=== PATIENT | female | born 1955 | race Caucasian/White ===

== ENCOUNTER → 2019-08-31 09:49 | Outpatient (BNVA) | payer MEDICARE, MEDICAID, SELFPAY | PROVIDERS: Family Provider Family Medicine; PCP Family Medicine; Visit Provider Nurse Practitioner Psychiatric/Mental Health | DX: F33.1 Major depressive disorder, recurrent, moderate (principal); F43.12 Post-traumatic stress disorder, chronic; F41.1 Generalized anxiety disorder | CPT/HCPCS: 99214; 99215 ==

== ENCOUNTER → 2019-11-22 08:52 | Outpatient (BNVA) | payer MEDICARE, MEDICAID, SELFPAY | PROVIDERS: Family Provider Family Medicine; PCP Family Medicine; Visit Provider Nurse Practitioner Psychiatric/Mental Health | DX: F33.1 Major depressive disorder, recurrent, moderate (principal); F43.12 Post-traumatic stress disorder, chronic; F41.1 Generalized anxiety disorder | CPT/HCPCS: 99214 ==

== ENCOUNTER → 2020-01-17 08:18 | Outpatient (BNVA) | payer MEDICARE, MEDICAID, SELFPAY | PROVIDERS: Family Provider Family Medicine; PCP Family Medicine; Visit Provider Nurse Practitioner Psychiatric/Mental Health | DX: F33.1 Major depressive disorder, recurrent, moderate (principal); F43.12 Post-traumatic stress disorder, chronic; F41.1 Generalized anxiety disorder | CPT/HCPCS: 99214 ==

== ENCOUNTER → 2020-03-28 07:51 | Outpatient (BNVA) | payer MEDICARE, MEDICAID, SELFPAY | PROVIDERS: Family Provider Family Medicine; PCP Family Medicine; Visit Provider Nurse Practitioner Psychiatric/Mental Health | DX: F33.1 Major depressive disorder, recurrent, moderate (principal); F43.12 Post-traumatic stress disorder, chronic; F41.1 Generalized anxiety disorder; Z79.899 Other long term (current) drug therapy | CPT/HCPCS: 99214 ==

== ENCOUNTER → 2020-04-12 09:20 | Outpatient (BNVA) | payer MEDICARE, MEDICAID, SELFPAY | PROVIDERS: Family Provider Family Medicine; PCP Family Medicine; Visit Provider Nurse Practitioner Psychiatric/Mental Health | DX: F33.1 Major depressive disorder, recurrent, moderate (principal); F43.12 Post-traumatic stress disorder, chronic; F41.1 Generalized anxiety disorder | CPT/HCPCS: 99214 ==

== ENCOUNTER → 2020-05-10 07:46 | Outpatient (BNVA) | payer MEDICARE, MEDICAID, SELFPAY | PROVIDERS: Family Provider Family Medicine; PCP Family Medicine; Visit Provider Nurse Practitioner Psychiatric/Mental Health | DX: F33.1 Major depressive disorder, recurrent, moderate (principal); F43.12 Post-traumatic stress disorder, chronic; F41.1 Generalized anxiety disorder | CPT/HCPCS: 99214 ==

== ENCOUNTER → 2020-06-07 07:46 | Outpatient (BNVA) | payer MEDICARE, MEDICAID, SELFPAY | PROVIDERS: Family Provider Family Medicine; PCP Family Medicine; Visit Provider Nurse Practitioner Psychiatric/Mental Health | DX: F33.1 Major depressive disorder, recurrent, moderate (principal); F43.12 Post-traumatic stress disorder, chronic; F41.1 Generalized anxiety disorder | CPT/HCPCS: 99214 ==

== ENCOUNTER → 2020-07-06 08:28 | Outpatient (BNVA) | payer MEDICARE, MEDICAID, SELFPAY | PROVIDERS: Family Provider Family Medicine; PCP Family Medicine; Visit Provider Nurse Practitioner Psychiatric/Mental Health | DX: F33.1 Major depressive disorder, recurrent, moderate (principal); F43.12 Post-traumatic stress disorder, chronic; F41.1 Generalized anxiety disorder | CPT/HCPCS: 99213 ==

== ENCOUNTER → 2020-08-31 10:46 | Outpatient (BNVA) | payer MEDICARE, MEDICAID, SELFPAY | PROVIDERS: Family Provider Family Medicine; PCP Family Medicine; Visit Provider Nurse Practitioner Psychiatric/Mental Health | DX: F33.1 Major depressive disorder, recurrent, moderate (principal); F43.12 Post-traumatic stress disorder, chronic; F41.1 Generalized anxiety disorder | CPT/HCPCS: 99213 ==

== ENCOUNTER → 2020-10-12 08:19 | Outpatient (BNVA) | payer MEDICARE, MEDICAID, SELFPAY | PROVIDERS: Family Provider Family Medicine; PCP Family Medicine; Visit Provider Nurse Practitioner Psychiatric/Mental Health | DX: F33.1 Major depressive disorder, recurrent, moderate (principal); F43.12 Post-traumatic stress disorder, chronic; F41.1 Generalized anxiety disorder | CPT/HCPCS: 99214 ==

== ENCOUNTER → 2020-11-30 08:47 | Outpatient (BNVA) | payer MEDICARE, MEDICAID, SELFPAY | PROVIDERS: Family Provider Family Medicine; PCP Family Medicine; Visit Provider Nurse Practitioner Psychiatric/Mental Health | DX: F33.1 Major depressive disorder, recurrent, moderate (principal); F43.12 Post-traumatic stress disorder, chronic; F41.1 Generalized anxiety disorder | CPT/HCPCS: 99214 ==

== ENCOUNTER → 2021-01-11 07:38 | Outpatient (BNVA) | payer MEDICARE, MEDICAID, SELFPAY | PROVIDERS: Family Provider Family Medicine; PCP Family Medicine; Visit Provider Nurse Practitioner Psychiatric/Mental Health | DX: F33.1 Major depressive disorder, recurrent, moderate (principal); F43.12 Post-traumatic stress disorder, chronic; F41.1 Generalized anxiety disorder | CPT/HCPCS: 99214 ==

== ENCOUNTER → 2021-01-30 07:31 | Outpatient (BNVA) | payer MEDICARE, MEDICAID, SELFPAY | PROVIDERS: Family Provider Family Medicine; PCP Family Medicine; Visit Provider Nurse Practitioner Psychiatric/Mental Health | DX: F33.1 Major depressive disorder, recurrent, moderate (principal); F43.12 Post-traumatic stress disorder, chronic; F41.1 Generalized anxiety disorder | CPT/HCPCS: 99214 ==

== ENCOUNTER → 2021-03-01 07:36 | Outpatient (BNVA) | payer MEDICARE, MEDICAID, SELFPAY | PROVIDERS: Family Provider Family Medicine; PCP Family Medicine; Visit Provider Nurse Practitioner Psychiatric/Mental Health | DX: F33.1 Major depressive disorder, recurrent, moderate (principal); F43.12 Post-traumatic stress disorder, chronic; F41.1 Generalized anxiety disorder | CPT/HCPCS: 99214 ==

== ENCOUNTER → 2021-04-12 08:35 | Outpatient (BNVA) | payer MEDICARE, MEDICAID, SELFPAY | PROVIDERS: Family Provider Family Medicine; PCP Family Medicine; Visit Provider Nurse Practitioner Psychiatric/Mental Health | DX: F33.1 Major depressive disorder, recurrent, moderate (principal); F43.12 Post-traumatic stress disorder, chronic; F41.1 Generalized anxiety disorder | CPT/HCPCS: 99214 ==

== ENCOUNTER → 2021-05-24 08:27 | Outpatient (BNVA) | payer MEDICARE, MEDICAID, SELFPAY | PROVIDERS: Family Provider Family Medicine; PCP Family Medicine; Visit Provider Nurse Practitioner Psychiatric/Mental Health | DX: F33.1 Major depressive disorder, recurrent, moderate (principal); F43.12 Post-traumatic stress disorder, chronic; F41.1 Generalized anxiety disorder | CPT/HCPCS: 99214 ==

== ENCOUNTER → 2021-06-21 08:29 | Outpatient (BNVA) | payer MEDICARE, MEDICAID, SELFPAY | PROVIDERS: Family Provider Family Medicine; PCP Family Medicine; Visit Provider Nurse Practitioner Psychiatric/Mental Health | DX: F33.1 Major depressive disorder, recurrent, moderate (principal); F43.12 Post-traumatic stress disorder, chronic; F41.1 Generalized anxiety disorder | CPT/HCPCS: 99214 ==

== ENCOUNTER → 2021-09-11 07:51 | Outpatient (BNVA) | payer MEDICARE, MEDICAID, SELFPAY | PROVIDERS: Family Provider Family Medicine; PCP Family Medicine; Visit Provider Nurse Practitioner Psychiatric/Mental Health | DX: F33.1 Major depressive disorder, recurrent, moderate (principal); F43.12 Post-traumatic stress disorder, chronic; F41.1 Generalized anxiety disorder | CPT/HCPCS: 99214 ==

== ENCOUNTER → 2021-10-23 07:41 | Outpatient (BNVA) | payer MEDICARE, MEDICAID, SELFPAY | PROVIDERS: Family Provider Family Medicine; PCP Family Medicine; Visit Provider Nurse Practitioner Psychiatric/Mental Health | DX: F33.1 Major depressive disorder, recurrent, moderate (principal); F43.12 Post-traumatic stress disorder, chronic; F41.1 Generalized anxiety disorder | CPT/HCPCS: 99214 ==

== ENCOUNTER → 2021-11-20 07:40 | Outpatient (BNVA) | payer MEDICARE, MEDICAID, SELFPAY | PROVIDERS: Family Provider Family Medicine; PCP Family Medicine; Visit Provider Nurse Practitioner Psychiatric/Mental Health | DX: F33.1 Major depressive disorder, recurrent, moderate (principal); F43.12 Post-traumatic stress disorder, chronic; F41.1 Generalized anxiety disorder | CPT/HCPCS: 99214 ==

== ENCOUNTER → 2022-01-01 07:07 | Outpatient (BNVA) | payer MEDICARE, MEDICAID, SELFPAY | PROVIDERS: Family Provider Family Medicine; PCP Family Medicine; Visit Provider Nurse Practitioner Psychiatric/Mental Health | DX: F33.1 Major depressive disorder, recurrent, moderate (principal); F43.12 Post-traumatic stress disorder, chronic; F41.1 Generalized anxiety disorder | CPT/HCPCS: 99214 ==

== ENCOUNTER → 2022-02-12 07:06 | Outpatient (BNVA) | payer MEDICARE, MEDICAID, SELFPAY | PROVIDERS: Family Provider Family Medicine; PCP Family Medicine; Visit Provider Nurse Practitioner Psychiatric/Mental Health | DX: F33.1 Major depressive disorder, recurrent, moderate (principal); F43.12 Post-traumatic stress disorder, chronic; F41.1 Generalized anxiety disorder | CPT/HCPCS: 99214 ==

== ENCOUNTER 2023-05-25 01:42 | Inpatient (IN) | payer MEDICARE, MEDICAID, SELFPAY ==
[2023-05-25] VITALS (8 sets, daily range): BP systolic 138–159; BP diastolic 65–83; PULSE 63–111; RESP 15–24; TEMP 36.6–36.9; O2SAT 93–99; BMI 64.2
[2023-05-25 02:55] LABS: Basophils % 0.5 %; Eosinophils # 0.3 10^3/uL (0.0-0.8); Eosinophils % 4.3 %; Hematocrit 35.5 % (36-47); Lymphocytes # 2.7 10^3/uL (0.8-4.8); Lymphocytes % 45.7 %; Mean Corpuscular HGB Conc 30.4 g/dL (30-55); Mean Corpuscular Hemoglobin 26.6 pg (27-33); Mean Corpuscular Volume 87.4 fl (85-98); Mean Platelet Volume 9.2 fL (7.4-10.4); Monocytes # 0.4 10^3/uL (0.2-0.9); Monocytes % 6.9 %; Neutrophils # 2.46 10^3/uL (1.8-7.7); Neutrophils % 42.4 %; Nucleated Red Blood Cells % 0 %; Platelet Count 222 10^3/cmm (157-399); Red Blood Count 4.06 10^6/uL (3.85-5.65); Red Cell Distribution Width 17.8 % (12.1-15.1)
[2023-05-25] MEDS: lanolin oint 7 gm 1 APPLIC TOPICAL (02:57)
--- NOTE | 2023-05-25 03:12 | W.ED.PSYCHS ---
HPI - Psych General: Chief Complaint: Psychiatric Symptoms Stated Complaint: SI Time Seen by Provider: 05/25/23 01:48 History of Present Illness: 67-year-old female complaining of suicidal ideation. This patient has been living at home with her family. She has an extensive psychiatric history. She has been admitted in the past for intentional overdose and suicidal ideation, although its been years since she has done so. She presents because she was having thoughts of harming herself, and was hearing voices telling her to do such. She did not know if she would be safe to stay at home. Symptoms of been going on and off for a week, but were worse this morning. She had promised her psychiatric nurse practitioner, that if she had such thoughts, she would call the hotline which she did. She presents by ambulance after calling the hotline. She notes that the voices are now gone. She is still unsure whether she would feel safe going home at this point. She had a recent increase in her Effexor. No recent fevers, vomiting, shortness of breath, etc. Associated symptoms: Reports auditory hallucinations, depression and suicidal ideation; Deny visual hallucinations Review of Systems Const: Denies: fever(s) or chills Eyes: Denies: change in vision ENMT: Reports: nasal congestion Card: Denies: chest pain or palpitations Resp: Denies: dyspnea, productive cough or non-productive cough GI: Denies: abdominal pain, nausea, vomiting or diarrhea Skin/Breast: Reports: rash (Intertriginous cellulitis, chronic) Psych: Reports: anxiety, depression, auditory hallucinations and suicidal ideation; Denies: visual hallucinations or tactile hallucinations [facility] ED PFSH: Medical History Chronic post-traumatic stress disorder Generalized anxiety disorder Major depressive disorder, recurrent episode, moderate with anxious distress Psychiatric care Physical Exam Const: GENERAL APPEARANCE: cooperative and frail appearing (Mildly); not ill appearing NUTRITIONAL APPEARANCE: obese HENMT: COMMON NORMALS: normocephalic, atraumatic and Normal external nose present HEAD & SCALP: normocephalic and atraumatic FACE & SINUS: normal facial exam and face symmetric NOSE: Normal external nose present Eye: COMMON NORMALS: Equal, round and reactive pupils present and EOMs intact bilaterally PUPIL: Yes Equal, round and reactive pupils present Neck/C-Spine: GENERAL: Yes trachea midline Chest: CHEST: Yes Symmetrical chest wall rise Resp: COMMON NORMALS: normal respiratory effort, No retractions, No use of accessory muscles and clear to auscultation bilaterally AUSCULTATION: clear to auscultation bilaterally Cardio: COMMON NORMALS: regular rate and regular rhythm RATE: regular rate RHYTHM: regular rhythm HEART SOUNDS: Murmur heart sound present systolic GI: COMMON NORMALS: Normal to inspection, nondistended, normoactive bowel sounds present Extremity: COMMON NORMALS: no pedal edema Neuro: ANN COMA SCALE: document GCS findings Ann coma scale eye opening: Spontaneous Ayden coma scale verbal response: Orientated Ayden coma scale motor response: Obey commands Ann coma scale total score: 15 SENSORY EXAM: Yes extremities (intact) Psych: COMMON NORMALS: speech normal SPEECH: Yes normal speech Skin: NARRATIVE SKIN EXAM: Intertriginous cellulitis. Course Vital Signs: Vital signs: Vital Signs Temperature 98.1 F 05/25/23 14:00 Pulse Rate 67 05/25/23 14:00 Respiratory Rate 15 05/25/23 14:00 Blood Pressure 143/79 05/25/23 14:00 Pulse Oximetry 98 05/25/23 14:00 Oxygen Delivery Me thod Nasal Cannula 05/25/23 09:44 Oxygen Flow Rate 3 05/25/23 06:29 [facility] - Psych Medical Decision Making 67-year-old patient without a history of dementia. She is having suicidal ideations, and has a long psychiatric history. Medically, she is stable. Laboratory shows hemoglobin of 11. Chest x-ray is negative for acute problems. No significant urinary tract infection although there is some hematuria. Talk screen is negative. Other laboratory not remarkable. The patient is on 3 L at baseline. She seems to get short of breath after activity more than during. This is improved after DuoNeb treatment in the ER. Spoke with psychiatry. Recommendations are to have someone from the NPU come see the patient to see if they believe she is appropriate for MPU admission. Also to have respiratory assess the patient. We have done both. Both staff members seem to believe she will do okay there. She is admitted to neuropsychiatry. Lab Data 05/25/23 02:37 05/25/23 02:37 Radiology Impressions Chest X-Ray 05/25/23 05:41 IMPRESSION: 1. Elevation of the right hemidiaphragm. 2. Mild cardiomegaly. No pulmonary vascular congestion Laboratory Results WBC 5.80 10^3/uL (3.29-11.43) 05/25/23 02:37 RBC 4.06 10^6/uL (3.85-5.65) 05/25/23 02:37 Hgb 10.80 g/dL (11.27-16.99) L 05/25/23 02:37 Hct 35.5 % (36-47) L 05/25/23 02:37 MCV 87.4 fl (85-98) 05/25/23 02:37 MCH 26.6 pg (27-33) L 05/25/23 02:37 MCHC 30.4 g/dL (30-55) 05/25/23 02:37 RDW 17.8 % (12.1-15.1) H 05/25/23 02:37 Plt Count 222 10^3/cmm (157-399) 05/25/23 02:37 MPV 9.2 fL (7.4-10.4) 05/25/23 02:37 Neut % (Auto) 42.4 % 05/25/23 02:37 Lymph % (Auto) 45.7 % 05/25/23 02:37 [place] % (Auto) 6.9 % 05/25/23 02:37 Eos % (Auto) 4.3 % 05/25/23 02:37 Baso % (Auto) 0.5 % 05/25/23 02:37 Neut # (Auto) 2.46 10^3/uL (1.8-7.7) 05/25/23 02:37 Lymph # (Auto) 2.7 10^3/uL (0.8-4.8) 05/25/23 02:37 [place] # (Auto) 0.4 10^3/uL (0.2-0.9) 05/25/23 02:37 Eos # (Auto) 0.3 10^3/uL (0.0-0.8) 05/25/23 02:37 Baso # (Auto) 0.0 10^3/uL (0.0-0.1) 05/25/23 02:37 Nucleated RBC % (auto) 0 % 05/25/23 02:37 Nucleated RBCs # 0.0 /100WBC 05/25/23 02:37 PT 15.60 SECONDS (12.1-14.9) H 05/25/23 02:37 INR 1.20 (0.8-1.2) 05/25/23 02:37 Sodium 137 mmol/L (136-145) 05/25/23 02:37 Potassium 4.2 mmol/L (3.5-5.1) 05/25/23 02:37 Chloride 98 mmol/L (98-107) 05/25/23 02:37 Carbon Dioxide 32 mmol/L (22-29) H 05/25/23 02:37 Anion Gap 11.2 (5-19) 05/25/23 02:37 BUN 15 mg/dL (8-23) 05/25/23 02:37 Creatinine 0.7 mg/dL (0.5-0.9) 05/25/23 02:37 GFR Calculation 84.0 mL/min (90-130) L 05/25/23 02:37 Glucose 101 mg/dL (65-115) 05/25/23 02:37 Calculated Osmolality 285 mOsm/kg (285-295) 05/25/23 02:37 Calcium 9.2 mg/dL (8.5-10.5) 05/25/23 02:37 Total Bilirubin 0.4 mg/dL (0.15-1.2) 05/25/23 02:37 AST 19 U/L (0-32) 05/25/23 02:37 ALT 10 U/L (0-33) 05/25/23 02:37 Alkaline Phosphatase 70 U/L (35-105) 05/25/23 02:37 Total Protein 7.5 g/dL (6.6-8.7) 05/25/23 02:37 Albumin 3.4 g/dL (3.5-5.2) L 05/25/23 02:37 Globulin 4.1 g/dL (1.3-4.6) 05/25/23 02:37 TSH 0.35 uIU/mL (0.27-4.20) 05/25/23 02:37 Urine Color Rashmi (Yellow) 05/25/23 03:27 Urine Appearance Clear (CLEAR) 05/25/23 03:27 Urine pH 5 (5-7) 05/25/23 03:27 Ur Specific [place] 1.020 (1.005-1.030) 05/25/23 03:27 Urine Protein Trace (Negative) 05/25/23 03:27 Urine Glucose (UA) Norm (Normal) 05/25/23 03:27 Urine Ketones 1+ (Negative) H 05/25/23 03:27 Urine Blood 3+ (Negative) H 05/25/23 03:27 Urine Nitrate Negative (Negative) 05/25/23 03:27 Urine Bilirubin 1+ (Negative) H 05/25/23 03:27 Urine Urobilinogen Neg mg/dL (Negative) 05/25/23 03:27 Ur Leukocyte Esterase Trace (Negative) H 05/25/23 03:27 Urine RBC 50-80 /hpf (0-2) H 05/25/23 03:27 Urine WBC 0-4 /hpf (0-5) H 05/25/23 03:27 Ur Squamous Epith Cells 0-4 /hpf (0-5) H 05/25/23 03:27 Amorphous Sediment Not Reportable 05/25/23 03:27 Urine Bacteria Trace /hpf (NONE) 05/25/23 03:27 Salicylates < 0.3 mg/dL (3-10) L 05/25/23 02:37 Urine Opiates Screen Negative ng/mL (Negative) 05/25/23 03:27 Acetaminophen 6.8 ug/mL (10-30) L 05/25/23 02:37 Ur Barbiturates Screen Negative ng/mL (Negative) 05/25/23 03:27 Ur Phencyclidine Scrn Negative ng/mL (Negative) 05/25/23 03:27 Ur Amphetamines Screen Negative ng/mL (Negative) 05/25/23 03:27 U Benzodiazepines Scrn Positive ng/mL (Negative) H 05/25/23 03:27 Urine Cocaine Screen Negative ng/mL (Negative) 05/25/23 03:27 U Marijuana (THC) Screen Negative ng/mL (Negative) 05/25/23 03:27 Ethyl Alcohol < 10 mg/dL (0-10) 05/25/23 02:37 All radiology interpretation(s) finalized by discharge Discharge Plan Discharge Patient Disposition: Admitted As Inpatient Admit Provider: Leandro Mcdonald Clinical Impression: Major depressive disorder, recurrent episode, moderate with anxious distress, Suicidal ideation Condition: Stable Coding Level of Care Code ED Neurology Physician for Carlito Webb
[2023-05-25 03:13] LABS: Acetaminophen 6.8 ug/mL (10-30); Alanine Aminotransferase 10 U/L (0-33); Albumin Level 3.4 g/dL (3.5-5.2); Alkaline Phosphatase 70 U/L (35-105); Anion Gap 11.2 (5-19); Aspartate Amino Transferase 19 U/L (0-32); Blood Urea Nitrogen 15 mg/dL (8-23); Calcium 9.2 mg/dL (8.5-10.5); Carbon Dioxide 32 mmol/L (22-29); Chloride 98 mmol/L (98-107); Globulin 4.1 g/dL (1.3-4.6); Glucose 101 mg/dL (65-115); Osmolality Calculated 285 mOsm/kg (285-295); Potassium 4.2 mmol/L (3.5-5.1); Sodium 137 mmol/L (136-145); Thyroid Stimulating Hormone 0.35 uIU/mL (0.27-4.20); Total Bilirubin 0.4 mg/dL (0.15-1.2); Total Protein 7.5 g/dL (6.6-8.7)
[2023-05-25 03:16] LABS: Alcohol Level < 10 mg/dL (0-10); Salicylate < 0.3 mg/dL (3-10)
[2023-05-25 03:49] LABS: Amphetamines Screen Urine Negative (Negative); Barbiturates Screen Urine Negative (Negative); Benzodiazepines Screen Urine Positive (Negative); Cocaine Screen Urine Negative (Negative); Opiate Screen Urine Negative (Negative); PCP Screen Urine Negative (Negative); THC Screen Urine Negative (Negative)
[2023-05-25 03:59] LABS: Glucose Urine UA Norm (Normal); Ketones Urine 1+ (Negative); Protein Urine Trace (Negative); Urine Appearance Clear (CLEAR); Urine Color Amber (Yellow); pH Urine 5 (5-7)
[2023-05-25 04:06] LABS: Add Urine Microscopic? YES; Bilirubin Urine 1+ (Negative); Blood Urine 3+ (Negative); Leukocyte Esterase Urine Trace (Negative); Nitrate Urine Negative (Negative); RBC Urine 50-80 /hpf (0-2); Squamous Epithelial Cell Urine 0-4 /hpf (0-5); Urobilinogen Urine Neg (Negative); WBC Urine 0-4 /hpf (0-5)
[2023-05-25 04:07] LABS: Add Urine Culture? Yes; Bacteria Urine TRACE /hpf
--- NOTE | 2023-05-25 04:50 | ECG_ITS ---
[facility] Test Date: 2023-05-25 Pat Name: Robel Yan Department: Room: Gender: Female Paginator: : 1955 Requested By: Long Bhat Order Number: [id number] Hermes MD: Armond Carmen M.D. Measurements Intervals [place] Rate: 60 P: 43 NH: 177 QRS: 33 QRSD: 110 T: 39 QT: 440 QTc: 440 Interpretive Statements SINUS RHYTHM POSSIBLE INFERIOR MYOCARDIAL INFARCTION , PROBABLY OLD [30 ms Q WAVE IN II/aVF] Compared to ECG 11/10/2014 00:02:45 Myocardial infarct finding now present Electronically Signed On 05-25-2023 22:53:00 CDT by Armond Carmen M.D. [id number]
[2023-05-25] MEDS: OLANZapine 10 mg ODT 15 MG PO (05:36)
--- NOTE | 2023-05-25 05:41 | XRR_ITS ---
PROCEDURE INFORMATION: Exam: XR Chest Exam date and time: 05/25/2023 5:44 AM Age: 67 years old Clinical indication: Wheezing; Additional info: Psychiatric symptoms TECHNIQUE: Imaging protocol: Radiologic exam of the chest. Views: 1 view. COMPARISON: No relevant prior studies available. FINDINGS: Lungs: Unremarkable. No consolidation. Pleural spaces: Unremarkable. No pleural effusion. No pneumothorax. Heart/Mediastinum: Mild cardiomegaly. Diaphragm: Elevation right hemidiaphragm. Bones/joints: Unremarkable. XR/XR chest 1V portable [id number] IMPRESSION: 1. Elevation of the right hemidiaphragm. 2. Mild cardiomegaly. No pulmonary vascular congestion
[2023-05-25] MEDS: ipratropium-albuterol 3 mL Neb INHALATION (06:21)
--- NOTE | 2023-05-25 08:54 | PC.PHAR ---
pt states she has a home health nurse from [facility] (not open on sundays)pt states she also has wound care nurses that have been helping from [facility]-pt states she knows her medications too-pt verified medications-notes are made in the pharmacy comments
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
[2023-05-25] MEDS: potassium chloride ER 20 mEq Tablet PO ×3 (10:21→20:28)
[2023-05-25] MEDS: doxycycline 100 mg Tablet PO ×2 (10:21→17:14)
[2023-05-25] MEDS: pantoprazole DR 40 mg Tablet PO ×2 (10:21→17:14)
[2023-05-25] MEDS: levothyroxine 125 mcg Tablet PO (10:21)
[2023-05-25] MEDS: apixaban 5 mg Tablet PO ×2 (10:21→17:14)
[2023-05-25] MEDS: isosorbide mononitrate ER 30 mg Tablet PO ×2 (10:21→17:14)
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
[2023-05-25] MEDS: gabapentin 100 mg Capsule PO (11:55)
[2023-05-25] MEDS: meclizine 25 mg tablet PO ×2 (11:55→17:14)
[2023-05-25] MEDS: acetaminophen 325 mg Tablet 650 MG PO (11:56)
--- OUTSIDE RECORDS SUMMARY | 2023-05-25 13:02 | XMS_ITS | Continuity of Care Document ---
Author Name Unknown Organization [facility] Address [address] [place] [address]- Care Team Providers Care Kiln Remover Name Role Phone Sarah Malik MD Primary Care Physician Encounter [employer] Number [id number] Date(s): 12/23/22 - 12/25/22 [facility] [address], [place] [address] Attending Physician: Maximo Hook MD Allergies, Adverse Reactions, Alerts Substance Reaction Severity Status tape Active Tegretol Active Urised Active Prilosec Active Assessment and Plan Future Appointments Appointment Date:01/01/2023 02:30:00 PM Scheduled Provider:Maximo Hook MD Location:[facility] Appointment Type:Established Patient Future Scheduled Tests Radiology* NM Myocardial Pharm Multi Spect 11/28/22 Medications Abilify 2 mg oral tablet 2 mg = 1 tab, By mouth, at bedtime, +, Refill(s) 0 Start Date: 10/14/13 Status: Ordered Ambien CR 12.5 mg oral tablet, extended release 12.5 mg = 1 tab, By mouth, at bedtime Start Date: 03/12/11 Status: Ordered aspirin 81 mg, By mouth, Daily, # 90 tab, Refill(s) 0 Start Date: 01/12/16 Status: Ordered Bumex 2 mg oral tablet 2 mg = 1 tab, By mouth, Daily, Refill(s) 0 Start Date: 11/24/19 Status: Ordered busPIRone 15 mg oral tablet 15 mg = 1 tab, By mouth, BID Start Date: 03/12/11 Status: Ordered Calcium 600+D one tab, By mouth, BID, Refill(s) 0 Start Date: 01/12/16 Status: Ordered Eliquis 5 mg oral tablet 5 mg = 1 tab, By mouth, BID, Refill(s) 0 Start Date: 07/31/22 Status: Ordered Imdur 30 mg oral tablet, extended release 30 mg = 1 tab, By mouth, BID, # 30 tab, Refill(s) 0 Start Date: 01/12/16 Status: Ordered Imitrex 50 mg oral tablet 50 mg = 1 tab, By mouth, Daily, for migraine headache, may repeat dose after 2 hours up to a maximum of 200 mg in 24 hours, # 18 tab, Refill(s) 0 Start Date: 10/14/13 Status: Ordered levothyroxine 100 mcg (0.1 mg) oral tablet 100 mcg = 1 tab, By mouth, Daily, # 30 tab, Refill(s) 0 Start Date: 05/11/18 Status: Ordered metformin 500 mg oral tablet 500 mg = 1 tab, By mouth, Daily Start Date: 03/12/11 Status: Ordered Nitrostat 0.4 mg sublingual tablet See Instructions, (not to exceed 3 doses/15 min--if pain persists, seek medical attention) Start Date: 03/12/11 Status: Ordered OxyCONTIN 10 mg, By mouth, Q6H, 0, 0, Substitution Permitted Start Date: 11/24/19 Status: Ordered potassium chloride 10 mEq oral tablet, extended release 20 mEq = 2 tab, By mouth, Daily Start Date: 03/12/11 Status: Ordered PriLOSEC 40 mg oral delayed release capsule 40 mg, By mouth, BID, # 60 cap, Refill(s) 0 Start Date: 07/31/22 Status: Ordered Pristiq 100 mg oral tablet, extended release 100 mg = 1 tab, By mouth, Daily, +, # 30 tab, Refill(s) 0 Start Date: 10/14/13 Status: Ordered promethazine 25 mg oral tablet 25 mg = 1 tab, By mouth, as needed, PRN for motion sickness, +, # 60 tab, Refill(s) 0 Start Date: 10/14/13 Status: Ordered terazosin 5 mg oral capsule 5 mg = 1 cap, By mouth, at bedtime, +, # 30 cap, Refill(s) 0 Start Date: 10/14/13 Status: Ordered tolterodine 4 mg oral capsule, extended release 4 mg = 1 cap, By mouth, Daily, Refill(s) 0 Start Date: 11/24/19 Status: Ordered Topamax 150 mg, By mouth, BID, Refill(s) 0 Start Date: 01/12/16 Status: Ordered Toviaz 8 mg oral tablet, extended release 8 mg = 1 tab, By mouth, Daily, +, Refill(s) 0 Start Date: 10/14/13 Status: Ordered Valium 5 mg oral tablet 5 mg, 1 tab, By mouth, TID, +, 0 Start Date: 10/14/13 Status: Ordered Vitamin B Complex 100 injectable solution 1,000 = Units, MF (Mon through Fri) Start Date: 03/12/11 Status: Ordered Zaroxolyn 2.5 mg, By mouth, Daily, +, Refill(s) 0 Start Date: 12/26/14 Status: Ordered Problem List Condition Confirmation Course Effective Dates Status Health St atus Informant Anxiety Confirmed Active Chest pain of uncertain etiology Confirmed Active DVT (deep venous thrombosis) Confirmed Active Ex-smoker Confirmed Active patient Hernia, hiatal Confirmed Active Current tobacco use Confirmed Active Procedures Procedure Date Related Diagnosis Body Site Status right foot bunectomy 2017 Comp leted delivery Complet ed Cholecystectomy Completed Hysterectomy Completed left foot bunionectomy great toe Completed right breast surgery Comp leted Rotator cuff arthropathy 1 Completed 12 on right, one on left Results Radiology Reports * Exam Date Time Procedure Performing Provider Status 12/23/22 2:36 PM NM Myocardial Pharm Multi Spect Julius Kaufman; Jamil (Verified) Notes: (NM Myocardial Pharm Multi Spect) Reason For Exam: chest pain;Chest pain of unknown etiology REPORT , Brake Repair Mechanic Maximo Hook MD Signed 12/24/22 07:09:43 (Electronic Signature) Dust Collector Operator JBR Technologist [place],[facility] NM Myocardial Pharm Multi Spect Nuclear Cardiology - Myocardial Perfusion Interpretation CLINICAL HISTORY: chest pain;Chest pain of unknown etiology. Lexiscan Dose = 0.4 mg Radiopharmaceutical: Technetium 99m sestamibi Dose: Rest = 15.4 mCi [id number] Stress = 45.5 mCi [id number] INTERPRETATION: Myocardial perfusion gated SPECT imaging was carried out with Sestamibi/TC99m Lexiscan and at rest. Both stress and resting images are within normal limits. Calculated volumetric left ventricular ejection fraction is 60%. IMPRESSION: 1. Normal Perfusion of Rest and Stress nuclear medicine images showing no evidence of infarction orischemia. 2. Left Ventricle is normal in size. 3. Global left ventricular function is normal. 4. No regional wall motion abnormalities. 5. Calculated volumetric left ventricular ejection fraction is 60%. Sestamibi image interpretation only; ECG interpretation on a separate report. Read location: Read at [facility] [place], [place] Electronically signed by: Dr Maximo Hook MD 12/24/2022 7:09 AM , Brake Repair Mechanic Maximo Hook MD Signed 12/24/22 07:09:43 (Electronic Signature) Dust Collector Operator JBR Technologist [place],[facility] Social History Social History Type Response Smoking Status Former smoker; Smoke less tobacco use: Never; Has the patient smoked in the last 365 days, even once? No; Type: Cigarettes; Tobacco use per day: 4 or less cigarettes(less than 1/4 pack)/day in last 30 days; Stopped at age: 64; entered on: 07/31/22 Sex Female 1stopped 2 weeks ago/ stopped 14 years then restarted 4 months ago , now stopped. Radiology * Maximo Hook MD: PERFORM, TRANSCRIBE, VERIFY, VERIFY Event Display: Report Authored Date: [id number] , Brake Repair Mechanic Maximo Hook MD Signed 12/24/22 07:09:43 (Electronic Signature) Dust Collector Operator JBR Technologist [place],[facility] Note * Maximo Hook MD: PERFORM, TRANSCRIBE, VERIFY, VERIFY Event Display: Powerscribe Read Authored Date: Nuclear Cardiology - Myocardial Perfusion Interpretation CLINICAL HISTORY: chest pain;Chest pain of unknown etiology. Lexiscan Dose = 0.4 mg Radiopharmaceutical: Technetium 99m sestamibi Dose: Rest = 15.4 mCi [id number] Stress = 45.5 mCi [id number] INTERPRETATION: Myocardial perfusion gated SPECT imaging was carried out with Sestamibi/TC99m Lexiscan and at rest. Both stress and resting images are within normal limits. Calculated volumetric left ventricular ejection fraction is 60%. IMPRESSION: 1. Normal Perfusion of Rest and Stress nuclear medicine images showing no evidence of infarction orischemia. 2. Left Ventricle is normal in size. 3. Global left ventricular function is normal. 4. No regional wall motion abnormalities. 5. Calculated volumetric left ventricular ejection fraction is 60%. Sestamibi image interpretation only; ECG interpretation on a separate report. Read location: Read at [facility], [place], [place] Electronically signed by: Dr Maximo Hook MD 12/24/2022 7:09 AM , Brake Repair Mechanic Monster LARRY, Maximo Troy Signed 12/24/22 07:09:43 (Electronic Signature) Dust Collector Operator JBR Technologist [place],[facility] Patient Care team information Care Team Personnel Name: Sarah Malik MD Position: 2 Restricted Providers Member Role: Primary Care Physician Address: Address: [address] [place] [id number] [place] [address] Care Team Related Persons Name: RL WEST Address: [place], [place] Name: ILA ASTORGA
[2023-05-25] MEDS: BuSPIRONE 10 mg Tablet 15 MG PO ×2 (14:53→20:28)
--- NOTE | 2023-05-25 15:21 | PC.NURSE ---
Patient's daughter called and said patient was put in a intermediate and then daughter was able to bring her back home this November. She stated that the patient has been getting frustrated because the daughter is refusing to wait on her and baby her anymore. She says the patient has not cooked for herself in a long time and will only get up to use the restroom. She says the patient will sleep all day and that her doctor had suggested a counselor, but she refused because she believes a counselor only looks at the negatives.
[2023-05-25] MEDS: gabapentin 100 mg Capsule 200 MG PO (17:14)
[2023-05-25] MEDS: hyDROXYzine 25 mg Capsule 50 MG PO (20:32)
[2023-05-26] MEDS: acetaminophen 325 mg Tablet 650 MG PO ×3 (00:04→20:58)
[2023-05-26 06:00] VITALS: BP 118/64; PULSE 72; RESP 13; TEMP 36.9; O2SAT 98
[2023-05-26] MEDS: levothyroxine 125 mcg Tablet PO (06:35)
[2023-05-26] MEDS: gabapentin 100 mg Capsule 200 MG PO ×2 (08:36→20:57)
[2023-05-26] MEDS: BuSPIRONE 10 mg Tablet 15 MG PO ×3 (08:37→20:56)
[2023-05-26] MEDS: potassium chloride ER 20 mEq Tablet PO ×3 (08:37→20:57)
[2023-05-26] MEDS: pantoprazole DR 40 mg Tablet PO ×2 (08:37→20:57)
[2023-05-26] MEDS: apixaban 5 mg Tablet PO ×2 (08:37→20:57)
[2023-05-26] MEDS: ondansetron 4 MG Tablet PO (08:37)
[2023-05-26] MEDS: meclizine 25 mg tablet PO ×2 (08:37→20:58)
[2023-05-26] MEDS: isosorbide mononitrate ER 30 mg Tablet PO ×2 (08:37→20:57)
[2023-05-26] MEDS: doxycycline 100 mg Tablet PO ×2 (08:37→20:57)
[2023-05-26 09:29] VITALS: PULSE 72; RESP 16; O2SAT 98
--- NOTE | 2023-05-26 11:11 | W.PM.NPUPNS ---
Subjective NPU Subjective: Patient presented today reporting that she is doing okay here. She reports that she is adjusting to the 150 mg of Effexor XR without issue. She reports that she feels kind of silly for reacting with the way that she did and that she is feeling better over the last day or so. We discussed not making any other changes without conversing with her outpatient nurse practitioner in psychiatry. She discussed some of the concerns her family was having about her not seeming to do all that she can do before asking for help. She reports that prior to this year she had not been walking for herself and that she is making progress. Mental Status Exam MSE Comments: This is a morbidly obese, older, white female, in hospital scrubs, with adequate grooming and eye contact. No abnormal movements, except for mild psychomotor retardation. Cooperative with exam in mild distress. Speech was slightly decreased volume and normal rate. Mood described as better; affect congruent. Thought process, organized. Thought content: patient denied any suicidal or homicidal ideation, there were no delusions reported or noted, patient denied any auditory or visual hallucinations. Attention, concentration, and memory appeared intact, but none were formally tested. Alert and oriented times three. Insight and judgment are limited. Impulse control is limited. Vitals/I&O/Wt Last Vital Signs Temp 98.4 F 05/26/23 06:00 Pulse 72 05/26/23 09:29 Resp 16 05/26/23 09:29 BP 118/64 05/26/23 06:00 Pulse Ox 98 05/26/23 09:29 O2 Del Method Nasal Cannula 05/26/23 09:29 O2 Flow Rate 3 05/26/23 09:29 Weight last 48 hrs Weight 154.221 kg Data NPU 05/25/23 02:37 05/25/23 02:37 Micro: Microbiology 05/25/23 03:27 Urine Culture - Preliminary Urine,Clean Catch Microbiology 05/25/23 03:27 Urine,Clean Catch Urine Culture - Preliminary A&P Assessment and plan (1) Generalized anxiety disorder: (2) Chronic post-traumatic stress disorder: (3) Major depressive disorder, recurrent episode, moderate with anxious distress: Plan This is a 67-year-old, white female, with genetic loading for mental health issues, with a long history of mental health issues and treatment, currently taking several psychiatric medications, who presents after having suicidal thoughts and being brought to the hospital by ambulance. 1.? Review and continue current medications, including increase in Effexor dose that was recently implemented. ? 2.? Talk to Karie in the morning to consult about her current medications. 3.? Encourage individual, group, and milieu therapy. 4.? Continue q-15-minute checks for safety. Involuntary Hold Information 96 Hour Hold: 96 Hour Involuntary Admission: No Attestations NPU Medical Necessity Statement*: Inpatient hospitalization is medically necessary and the clinically appropriate intervention, at this time. We will monitor medications and make changes as indicated. Likely length of stay is 2-4 days. Coding Level of Care Code Acute Code for [facility] Fwd Diagnoses Generalized anxiety disorder F41.1 Chronic post-traumatic stress disorder F43.12 Major depressive disorder, recurrent episode, moderate with anxious distress F33.1
[2023-05-26] MEDS: meloxicam 7.5 mg tablet 15 MG PO (11:23)
[2023-05-26] MEDS: venlafaxine ER (24HR) 150 mg Capsule PO (11:23)
[2023-05-26 14:00] VITALS: BP 114/71; PULSE 112; RESP 18; TEMP 36.6; O2SAT 96
[2023-05-26 19:48] VITALS: BP 104/52; PULSE 74; RESP 18; O2SAT 98
[2023-05-26] MEDS: hyDROXYzine 25 mg Capsule 50 MG PO (21:03)
[2023-05-27] MEDS: acetaminophen 325 mg Tablet 650 MG PO ×3 (01:18→15:03)
[2023-05-27 06:00] VITALS: BP 132/93; PULSE 99; RESP 17; O2SAT 97
[2023-05-27] MEDS: levothyroxine 125 mcg Tablet PO (06:23)
[2023-05-27 08:00] VITALS: PULSE 72; RESP 18; O2SAT 99
[2023-05-27] MEDS: BuSPIRONE 10 mg Tablet 15 MG PO ×3 (08:01→21:02)
[2023-05-27] MEDS: meclizine 25 mg tablet PO ×2 (08:02→21:01)
[2023-05-27] MEDS: pantoprazole DR 40 mg Tablet PO ×2 (08:02→21:01)
[2023-05-27] MEDS: isosorbide mononitrate ER 30 mg Tablet PO ×2 (08:02→21:02)
[2023-05-27] MEDS: potassium chloride ER 20 mEq Tablet PO ×3 (08:02→21:01)
[2023-05-27] MEDS: venlafaxine ER (24HR) 150 mg Capsule PO (08:02)
[2023-05-27] MEDS: gabapentin 100 mg Capsule 200 MG PO ×2 (08:03→21:01)
[2023-05-27] MEDS: doxycycline 100 mg Tablet PO ×2 (08:03→21:01)
[2023-05-27] MEDS: meloxicam 7.5 mg tablet 15 MG PO (08:03)
[2023-05-27] MEDS: apixaban 5 mg Tablet PO ×2 (08:03→21:02)
--- NOTE | 2023-05-27 10:55 | W.PM.NPUPNS ---
Subjective NPU Subjective: Patient presented today reporting that she is feeling slow improvement. We discussed the increase of her Effexor weeks ago likely coming to affect as well as her getting a break from some of the challenging dynamic between her and her daughter. She reports an openness to continue to work with therapy and outpatient treatment moving forward. We discussed the plan to explore discharge before the weekend. Mental Status Exam MSE Comments: This is a morbidly obese, older, white female, in hospital scrubs, with adequate grooming and eye contact. No abnormal movements, except for mild psychomotor retardation. Cooperative with exam in mild distress. Speech was slightly decreased volume and normal rate. Mood described as better; affect congruent. Thought process, organized. Thought content: patient denied any suicidal or homicidal ideation, there were no delusions reported or noted, patient denied any auditory or visual hallucinations. Attention, concentration, and memory appeared intact, but none were formally tested. Alert and oriented times three. Insight and judgment are limited. Impulse control is limited. Vitals/I&O/Wt Last Vital Signs Temp 97.8 F 05/26/23 14:00 Pulse 72 05/27/23 08:00 Resp 18 05/27/23 08:00 BP 132/93 05/27/23 06:00 Pulse Ox 99 05/27/23 08:00 O2 Del Method Nasal Cannula 05/27/23 08:00 O2 Flow Rate 3 05/27/23 08:00 Data NPU 05/25/23 02:37 05/25/23 02:37 Micro: Microbiology 05/25/23 03:27 Urine Culture - Final Urine,Clean Catch Microbiology 05/25/23 03:27 Urine,Clean Catch Urine Culture - Final A&P Assessment and plan (1) Generalized anxiety disorder: (2) Chronic post-traumatic stress disorder: (3) Major depressive disorder, recurrent episode, moderate with anxious distress: Plan This is a 67-year-old, white female, with genetic loading for mental health issues, with a long history of mental health issues and treatment, currently taking several psychiatric medications, who presents after having suicidal thoughts and being brought to the hospital by ambulance. 1.? Review and continue current medications, including increase in Effexor dose that was recently implemented. ? 2.? Work with treatment team on discharge planning. 3.? Encourage individual, group, and milieu therapy. 4.? Continue q-15-minute checks for safety. Involuntary Hold Information 96 Hour Hold: 96 Hour Involuntary Admission: No Attestations NPU Medical Necessity Statement*: Inpatient hospitalization is medically necessary and the clinically appropriate intervention, at this time. We will monitor medications and make changes as indicated. Likely length of stay is 2-4 days. Coding Level of Care Code Acute Code for [facility] Fwd Diagnoses Generalized anxiety disorder F41.1 Chronic post-traumatic stress disorder F43.12 Major depressive disorder, recurrent episode, moderate with anxious distress F33.1
[2023-05-27 14:00] VITALS: BP 121/59; PULSE 75; RESP 18; TEMP 36.6; O2SAT 98
[2023-05-27] MEDS: quetiapine 25 mg Tablet PO (21:02)
[2023-05-27 21:05] VITALS: BP 106/61; PULSE 72; RESP 20; TEMP 37.1; O2SAT 98
[2023-05-28] MEDS: acetaminophen 325 mg Tablet 650 MG PO ×2 (00:05→09:08)
[2023-05-28 06:00] VITALS: RESP 16
[2023-05-28 07:55] VITALS: PULSE 75; RESP 16; O2SAT 97
[2023-05-28] MEDS: potassium chloride ER 20 mEq Tablet PO ×3 (09:07→21:12)
[2023-05-28] MEDS: venlafaxine ER (24HR) 150 mg Capsule PO (09:07)
[2023-05-28] MEDS: meloxicam 7.5 mg tablet 15 MG PO (09:07)
[2023-05-28] MEDS: gabapentin 100 mg Capsule 200 MG PO ×2 (09:07→21:12)
[2023-05-28] MEDS: doxycycline 100 mg Tablet PO ×2 (09:07→21:12)
[2023-05-28] MEDS: apixaban 5 mg Tablet PO ×2 (09:08→21:12)
[2023-05-28] MEDS: BuSPIRONE 10 mg Tablet 15 MG PO ×3 (09:08→21:13)
[2023-05-28] MEDS: pantoprazole DR 40 mg Tablet PO ×2 (09:08→21:12)
[2023-05-28] MEDS: levothyroxine 125 mcg Tablet PO (09:08)
[2023-05-28] MEDS: meclizine 25 mg tablet PO ×2 (09:08→21:12)
[2023-05-28] MEDS: isosorbide mononitrate ER 30 mg Tablet PO ×2 (09:08→21:12)
--- NOTE | 2023-05-28 12:47 | PC.NURSE ---
Pressure ulcers visualized. Two on left cheek and one on the right. All approximately half-inch, clean, and dry. Cleaned and protective ointment applied.
--- NOTE | 2023-05-28 13:54 | W.PM.NPUPNS ---
Subjective NPU Subjective: Patient presented today reporting that she is feeling better. We discussed discharge planning and she reports feeling like she could possibly discharge tomorrow. Only concerns that were raised were those of her daughter being out of town this weekend and that meaning she would be alone. We discussed daughter and social work team working on the possibility of some kind of supports checking it over the weekend. She was endorsing some pain and wondering about temporary nonnarcotic interventions. Mental Status Exam MSE Comments: This is a morbidly obese, older, white female, in hospital scrubs, with adequate grooming and eye contact. No abnormal movements, except for mild psychomotor retardation. Cooperative with exam in no acute distress. Speech was slightly decreased volume and normal rate. Mood described as better; affect congruent. Thought process, organized. Thought content: patient denied any suicidal or homicidal ideation, there were no delusions reported or noted, patient denied any auditory or visual hallucinations. Attention, concentration, and memory appeared intact, but none were formally tested. Alert and oriented times three. Insight and judgment are limited. Impulse control is limited. Vitals/I&O/Wt Last Vital Signs Temp 98.8 F 05/27/23 21:05 Pulse 75 05/28/23 07:55 Resp 16 05/28/23 07:55 BP 106/61 05/27/23 21:05 Pulse Ox 97 05/28/23 07:55 O2 Del Method Nasal Cannula 05/28/23 07:55 O2 Flow Rate 3 05/28/23 12:00 Data NPU 05/25/23 02:37 05/25/23 02:37 Micro: Microbiology 05/25/23 03:27 Urine Culture - Final Urine,Clean Catch Microbiology 05/25/23 03:27 Urine,Clean Catch Urine Culture - Final A&P Assessment and plan (1) Generalized anxiety disorder: (2) Chronic post-traumatic stress disorder: (3) Major depressive disorder, recurrent episode, moderate with anxious distress: Plan This is a 67-year-old, white female, with genetic loading for mental health issues, with a long history of mental health issues and treatment, currently taking several psychiatric medications, who presents after having suicidal thoughts and being brought to the hospital by ambulance. 1.? Continue current medications including the increase in Effexor XR. 2. Tentative plan for discharge in the morning. 3.? Encourage individual, group, and milieu therapy. 4.? Continue q-15-minute checks for safety. Involuntary Hold Information 96 Hour Hold: 96 Hour Involuntary Admission: No Attestations NPU Medical Necessity Statement*: Inpatient hospitalization is medically necessary and the clinically appropriate intervention, at this time. We will monitor medications and make changes as indicated. Likely length of stay is 1-3 days. Coding Level of Care Code Acute Code for [facility] Fwd Diagnoses Generalized anxiety disorder F41.1 Chronic post-traumatic stress disorder F43.12 Major depressive disorder, recurrent episode, moderate with anxious distress F33.1
[2023-05-28 14:00] VITALS: BP 110/55; PULSE 70; RESP 18; TEMP 36.8; O2SAT 100
[2023-05-28 20:22] VITALS: PULSE 78; RESP 16; O2SAT 98
[2023-05-28 21:04] VITALS: BP 95/54; PULSE 76; RESP 17; O2SAT 96
[2023-05-28] MEDS: quetiapine 25 mg Tablet PO (21:12)
[2023-05-29] MEDS: hyDROXYzine 25 mg Capsule 50 MG PO (02:35)
--- NOTE | 2023-05-29 06:58 | PC.NURSE ---
pt ref resp 16
[2023-05-29 08:00] VITALS: PULSE 80; RESP 17; O2SAT 95
[2023-05-29] MEDS: gabapentin 100 mg Capsule 200 MG PO (08:25)
[2023-05-29] MEDS: isosorbide mononitrate ER 30 mg Tablet PO (08:25)
[2023-05-29] MEDS: levothyroxine 125 mcg Tablet PO (08:25)
[2023-05-29] MEDS: acetaminophen 325 mg Tablet 650 MG PO ×2 (08:25→13:28)
[2023-05-29] MEDS: meloxicam 7.5 mg tablet 15 MG PO (08:25)
[2023-05-29] MEDS: doxycycline 100 mg Tablet PO (08:25)
[2023-05-29] MEDS: apixaban 5 mg Tablet PO (08:26)
[2023-05-29] MEDS: meclizine 25 mg tablet PO (08:26)
[2023-05-29] MEDS: potassium chloride ER 20 mEq Tablet PO (08:26)
[2023-05-29] MEDS: venlafaxine ER (24HR) 150 mg Capsule PO (08:26)
[2023-05-29] MEDS: BuSPIRONE 10 mg Tablet 15 MG PO (08:26)
[2023-05-29] MEDS: pantoprazole DR 40 mg Tablet PO (08:27)
--- NOTE | 2023-05-29 09:25 | DCPLANNER ---
IMM was printed and was given and explained to pt and copy placed in file.
--- NOTE | 2023-05-29 09:44 | PC.NURSE ---
During assessment, patient reports mild anxiety because she is excited about possibly being discharged today. Patient denies SI, HI, AVH. Sitter present. No distress observed
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
[2023-05-29 12:29] VITALS: PULSE 80; RESP 17; O2SAT 95
== END 2023-05-29 15:47 | disposition home or self-care (01) | DRG 885 ==
LOC: ER 06:45 → NP 10:31
PROVIDERS: Admitting Provider Psychiatry & Neurology Psychiatry; Emergency Provider Emergency Medicine; Visit Provider Psychiatry & Neurology Psychiatry
DX: F33.1 Major depressive disorder, recurrent, moderate (principal); R45.851 Suicidal ideations; R44.0 Auditory hallucinations; F41.1 Generalized anxiety disorder; Z91.410 Personal history of adult physical and sexual abuse; Z91.411 Personal history of adult psychological abuse; Z91.51 Personal history of suicidal behavior; Z99.3 Dependence on wheelchair; Z99.81 Dependence on supplemental oxygen
CPT/HCPCS: 36415; 71045; 80053; 80306; 80307; 81001; 84443; 85025; 85610; 87086; 93005; 94640; 97165; 99285; J8597; Q0162

== ENCOUNTER → 2024-01-01 09:21 | Outpatient (BNVA) | payer MEDICARE, MEDICAID, SELFPAY | PROVIDERS: PCP Family Medicine; Visit Provider Anesthesiology Pain Medicine | DX: M51.9 Unspecified thoracic, thoracolumbar and lumbosacral intervertebral disc disorder; M54.50 Low back pain, unspecified | CPT/HCPCS: 99205 ==

== ENCOUNTER → 2025-04-28 09:14 | Outpatient (BNVA) | payer MEDICARE, MEDICAID, SELFPAY | PROVIDERS: PCP Family Medicine; Visit Provider Orthopaedic Surgery | DX: M51.9 Unspecified thoracic, thoracolumbar and lumbosacral intervertebral disc disorder (principal); M54.9 Dorsalgia, unspecified | CPT/HCPCS: 72110; 99203 ==

== ENCOUNTER → 2025-07-01 10:03 | Outpatient (BNVA) | payer MEDICARE, SELFPAY | PROVIDERS: PCP Family Medicine; Visit Provider Dermatology | DX: L30.4 Erythema intertrigo (principal); S30.92XA Unspecified superficial injury of abdominal wall, initial encounter; X58.XXXA Exposure to other specified factors, initial encounter; L30.9 Dermatitis, unspecified | CPT/HCPCS: 11104; 11105; 99204 ==

== ENCOUNTER → 2025-08-04 11:21 | Outpatient (BNVA) | payer MEDICARE, MEDICAID, SELFPAY ==
[2025-07-25 09:53] VITALS: BP 118/70; BMI 59.9
== END ==
PROVIDERS: PCP Family Medicine; Visit Provider Dermatology
DX: L30.4 Erythema intertrigo (principal); S20.101A Unspecified superficial injuries of breast, right breast, initial encounter; S30.92XA Unspecified superficial injury of abdominal wall, initial encounter; L08.9 Local infection of the skin and subcutaneous tissue, unspecified; X58.XXXA Exposure to other specified factors, initial encounter
CPT/HCPCS: 11104; 99214